=== PATIENT | female | born 1980 | race Caucasian/White ===

== ENCOUNTER 2018-09-01 22:16 | Outpatient (CLI) | payer MEDICAID | END 2018-09-01 23:51 | disposition home or self-care (01) | LOC: OBT 22:16 → L-D 22:17 | DX: O36.8330 Maternal care for abnormalities of the fetal heart rate or rhythm, third trimester, not applicable or unspecified (principal); O48.0 Post-term pregnancy; O09.523 Supervision of elderly multigravida, third trimester; Z3A.40 40 weeks gestation of pregnancy | CPT/HCPCS: 76815; 76818 ==

== ENCOUNTER 2018-09-02 08:34 | Inpatient (IN) | payer MEDICAID ==
[2018-09-02] MEDS ORDERED: BUTORPHANOL 2 MG INJ IV ×2 (09:30)
[2018-09-02] MEDS ORDERED: LIDOCAINE 1% (MPF) 30 ML INJ INJ (09:30)
[2018-09-02] MEDS ORDERED: MISOPROSTOL 200 MCG TAB PR (09:30)
[2018-09-02] MEDS ORDERED: IBUPROFEN 600 MG TAB PO (09:30)
[2018-09-02] MEDS ORDERED: CARBOPROST 250 MCG INJ IM (09:30)
[2018-09-02] MEDS ORDERED: OXYTOCIN 30 UNITS/LR 500 ML IV ×3 (09:30)
[2018-09-02] MEDS ORDERED: METHYLERGONOVINE 0.2 MG INJ IM (09:30)
[2018-09-02 10:26] LABS: ADD MAN DIFF? NO
[2018-09-02 10:39] LABS: BASOPHILS % 0.4 % (0.0-2.0); EOSINOPHILS # 0.1 10^3/ul (0.0-0.5); EOSINOPHILS % 1.3 % (0.0-7.0); HEMATOCRIT 35.6 % (37.0-47.0); HEMOGLOBIN 11.6 g/dl (12.0-16.0); LYMPHOCYTES # 1.6 10^3/ul (0.8-2.9); LYMPHOCYTES % 18.8 % (15.0-51.0); MEAN CORPUSCULAR HEMOGLOBIN 28.8 pg (29.0-33.0); MEAN CORPUSCULAR HGB CONC 32.6 g/dl (32.0-37.0); MEAN CORPUSCULAR VOLUME 88.3 fl (82.0-101.0); MEAN PLATELET VOLUME 10.4 fl (7.4-10.4); MONOCYTE # 1.1 10^3/ul (0.3-0.9); MONOCYTES % 13.2 % (0.0-11.0); NEUTROPHIL # 5.6 10^3/ul (1.6-7.5); NEUTROPHILS % 65.6 % (39.0-77.0); PLATELET COUNT 206 10^3/UL (140-415); RED BLOOD COUNT 4.03 10^6/ul (4.20-5.40); RED CELL DISTRIBUTION WIDTH 14.2 % (11.5-14.5)
[2018-09-02 10:39] LABS: WHITE BLOOD COUNT 8.5 10^3/ul (4.8-10.8)
[2018-09-02 11:00] LABS: INR 0.91; PROTIME 12.4 Sec (11.9-14.9)
[2018-09-02] MEDS: LACTATED RINGER'S 1,000 ML IV ×2 (13:05→22:20)
[2018-09-02] MEDS: MISOPROSTOL 50 MCG CAPSULE PO ×2 (13:05→20:07)
[2018-09-02 13:42] LABS: HEPATITIS B SURFACE ANTIGEN NEGATIVE (NEGATIVE)
[2018-09-03] MEDS: MISOPROSTOL 50 MCG CAPSULE PO ×4 (00:55→13:26)
[2018-09-03] MEDS: LACTATED RINGER'S 1,000 ML IV ×3 (05:20→21:34)
[2018-09-03] MEDS: OXYTOCIN 30 UNITS/LR 500 ML IV (19:08)
[2018-09-04] MEDS: MISOPROSTOL 50 MCG CAPSULE PO (03:52)
[2018-09-04] MEDS ORDERED: LACTATED RINGER'S 1,000 ML IV (03:53)
[2018-09-04] MEDS: LACTATED RINGER'S 1,000 ML IV ×3 (05:42→19:24)
[2018-09-04] MEDS: OXYTOCIN 30 UNITS/LR 500 ML IV (16:25)
[2018-09-04] MEDS ORDERED: CITRIC ACID/NA CITRATE 30 ML CUP (21:22)
[2018-09-04] MEDS: CITRIC ACID/NA CITRATE 30 ML CUP PO (21:24)
[2018-09-04] MEDS: METOCLOPRAMIDE 10 MG INJ IV (21:24)
[2018-09-04] MEDS: FAMOTIDINE 20 MG INJ IV (21:24)
[2018-09-04] MEDS ORDERED: morphine SULFATE/PF (10 MG/10 ML) INJ (21:40)
[2018-09-04] MEDS: AZITHROMYCIN 500MG/NS (PMX) 250 ML IVPB (21:41)
[2018-09-04] MEDS: CEFAZOLIN 2 GM/50 ML (PMX) 50 ML IVPB (21:41)
[2018-09-04] MEDS ORDERED: EPHEDrine 25 MG/5 ML SYG (21:58)
[2018-09-04] MEDS ORDERED: PROCHLORPERAZINE 10 MG INJ IV (22:00)
[2018-09-04] MEDS ORDERED: EPHEDrine 25 MG/5 ML SYG IV (22:00)
[2018-09-04] MEDS ORDERED: MEPERIDINE 25 MG INJ IV (22:00)
[2018-09-04] MEDS ORDERED: FENTAnyl 50 MCG/ML VIAL IV ×3 (22:00)
[2018-09-04] MEDS ORDERED: HYDROmorphONE 1 MG/5 ML IV SYRINGE IV ×3 (22:00)
[2018-09-04] MEDS ORDERED: DIPHENHYDRAMINE 50 MG INJ IV (22:00)
[2018-09-04] MEDS ORDERED: ONDANSETRON 4 MG INJ IV (22:00)
[2018-09-04] MEDS ORDERED: ONDANSETRON 4 MG INJ (22:16)
[2018-09-04] MEDS ORDERED: PHENYLephrine (100 MCG/ML) 10ML SYG (22:16)
[2018-09-04] MEDS ORDERED: MIDAZOLAM 1 MG/ML 2 ML INJ (22:29)
[2018-09-04] MEDS ORDERED: MEPERIDINE 100 MG INJ (22:56)
[2018-09-04] MEDS ORDERED: OXYTOCIN 30 UNITS/LR 500 ML IV (23:00)
[2018-09-05] MEDS: KETOROLAC 30 MG INJ IV ×2 (00:30→13:56)
[2018-09-05] MEDS: DEXTROSE 5%-LR 1,000 ML IV ×3 (02:12→18:12)
[2018-09-05] MEDS: OXYTOCIN 30 UNITS/LR 500 ML IV (02:27)
[2018-09-05] MEDS ORDERED: OXYTOCIN 30 UNITS/LR 500 ML IV (02:30)
[2018-09-05] MEDS ORDERED: DIPHENHYDRAMINE 50 MG INJ IV (02:30)
[2018-09-05] MEDS ORDERED: ZOLPIDEM 5 MG TAB PO (02:30)
[2018-09-05] MEDS ORDERED: HYDROmorphONE 0.5 MG/0.5 ML SYG IV ×2 (02:30)
[2018-09-05] MEDS ORDERED: METHYLERGONOVINE 0.2 MG INJ IM (02:30)
[2018-09-05] MEDS ORDERED: NALOXONE (0.4 MG/ML) INJ IV (02:30)
[2018-09-05] MEDS ORDERED: CARBOPROST 250 MCG INJ IM (02:30)
[2018-09-05] MEDS ORDERED: METHYLERGONOVINE 0.2 MG TAB PO (02:30)
[2018-09-05] MEDS ORDERED: MISOPROSTOL 200 MCG TAB PR (02:30)
[2018-09-05] MEDS ORDERED: ONDANSETRON 4 MG INJ IV (02:30)
[2018-09-05 08:03] LABS: ADD MAN DIFF? NO
[2018-09-05 08:07] LABS: WHITE BLOOD COUNT 11.5 10^3/ul (4.8-10.8)
[2018-09-05 08:07] LABS: BASOPHILS % 0.2 % (0.0-2.0); EOSINOPHILS % 0.1 % (0.0-7.0); HEMATOCRIT 34.3 % (37.0-47.0); HEMOGLOBIN 11.1 g/dl (12.0-16.0); LYMPHOCYTES # 1.2 10^3/ul (0.8-2.9); LYMPHOCYTES % 10.8 % (15.0-51.0); MEAN CORPUSCULAR HEMOGLOBIN 28.4 pg (29.0-33.0); MEAN CORPUSCULAR HGB CONC 32.4 g/dl (32.0-37.0); MEAN CORPUSCULAR VOLUME 87.7 fl (82.0-101.0); MEAN PLATELET VOLUME 10.5 fl (7.4-10.4); MONOCYTE # 1.2 10^3/ul (0.3-0.9); MONOCYTES % 10.4 % (0.0-11.0); NEUTROPHILS % 78.1 % (39.0-77.0); PLATELET COUNT 182 10^3/UL (140-415); RED BLOOD COUNT 3.91 10^6/ul (4.20-5.40); RED CELL DISTRIBUTION WIDTH 14.3 % (11.5-14.5)
[2018-09-05] MEDS: SENNA/DOCUSATE NA (8.6MG/50MG) TAB PO ×2 (09:00→20:32)
[2018-09-05] MEDS ORDERED: DIPHTH/TET/ACEL PERTUSS (ADULT) 0.5 ML VIAL IM* (11:00)
[2018-09-05] MEDS: LACTATED RINGER'S 1,000 ML IV (12:54)
[2018-09-05] MEDS: MAGNESIUM HYDROXIDE 30ML CUP PO (20:32)
[2018-09-06] MEDS: HYDROCODONE/APAP (5/325) TAB PO ×4 (01:09→16:43)
[2018-09-06] MEDS ORDERED: HYDROCODONE/APAP (5/325) TAB PO ×2 (02:30→06:00)
[2018-09-06] MEDS: IBUPROFEN 800 MG TAB PO ×3 (05:00→16:42)
[2018-09-06] MEDS ORDERED: IBUPROFEN 800 MG TAB PO (06:00)
[2018-09-06] MEDS: SENNA/DOCUSATE NA (8.6MG/50MG) TAB PO ×2 (09:48→20:04)
[2018-09-06] MEDS: DEXTROSE 5%-LR 1,000 ML IV ×2 (10:12)
[2018-09-06] MEDS: LANOLIN HPA 1 PKT TOP (20:03)
[2018-09-06 21:32] LABS: RAPID PLASMA REAGIN NONREACTIVE (NR)
[2018-09-07] MEDS: IBUPROFEN 800 MG TAB PO ×3 (00:26→17:03)
[2018-09-07] MEDS: HYDROCODONE/APAP (5/325) TAB PO ×4 (04:08→17:00)
[2018-09-07] MEDS: SENNA/DOCUSATE NA (8.6MG/50MG) TAB PO (08:26)
[2018-09-07] MEDS: MEASLES,MUMPS,RUBELLA VACCINE INJ SC* (09:00)
[2018-09-07] MEDS: DIPHTH/TET/ACEL PERTUSS (ADULT) 0.5 ML VIAL IM* (11:57)
[2018-09-07 17:05] LABS: ADD UMIC YES; UR ASCORBIC ACID NEGATIVE (NEGATIVE); UR BILIRUBIN (Dip) NEGATIVE (NEGATIVE); UR BLOOD (Dip) 2+ mg/dL (NEGATIVE); UR CLARITY CLEAR (CLEAR); UR COLOR STRAW (YELLOW); UR GLUCOSE (Dip) NEGATIVE (NEGATIVE); UR KETONES (Dip) NEGATIVE (NEGATIVE); UR LEUKOCYTE ESTERASE (Dip) NEGATIVE Leu/ul (NEGATIVE); UR NITRITE (Dip) NEGATIVE (NEGATIVE); UR RBC 1 /HPF (0-5); UR SPECIFIC GRAVITY (Dip) 1.006 (1.003-1.030); UR TOTAL PROTEIN (Dip) NEGATIVE (NEGATIVE); UR UROBILINOGEN (Dip) NEGATIVE (NEGATIVE); UR WBC 0 /HPF (0-5)
[2018-09-07] MEDS: BISACODYL 10 MG SUPP PR (17:44)
== END 2018-09-07 18:53 | disposition home or self-care (01) | DRG 788 ==
LOC: L-D 08:34 → PP1 09-05 02:13 → L-D 09-04 21:28
PROVIDERS: Obstetrics & Gynecology
PROC: 10D00Z1 Extraction of Products of Conception, Low, Open Approach (ICD-10-PCS; principal; 2018-09-04 19:00)
DX: O48.0 Post-term pregnancy (principal); O61.9 Failed induction of labor, unspecified; Z3A.40 40 weeks gestation of pregnancy; Z37.0 Single live birth
CPT/HCPCS: 76815; 81001; 85025; 85610; 85730; 86592; 86850; 86900; 86901; 87340; 90715; 99464

== ENCOUNTER 2018-09-11 15:45 | Emergency (ER) | payer MEDICAID ==
[2018-09-11] MEDS: ACETAMINOPHEN 325 MG TAB PO (16:54)
[2018-09-11 16:58] LABS: URINE BLOOD (Dip) POC 1+ (NEGATIVE); URINE GLUCOSE (Dip) POC Negative (NEGATIVE); URINE KETONES (Dip) POC Negative (NEGATIVE); URINE LEUKOCYTE EST (Dip) POC Negative (NEGATIVE); URINE NITRITE (Dip) POC Negative (NEGATIVE); URINE TOTAL PROTEIN POC Negative (NEGATIVE)
[2018-09-11 16:58] LABS: URINE PH (Dip) POC 6.5 (5.0-8.5)
== END 2018-09-11 19:40 | disposition home or self-care (01) ==
LOC: E/R 19:40
DX: G89.18 Other acute postprocedural pain (principal)
CPT/HCPCS: 76856; 81003; 81025; 99284-25